=== PATIENT | male | born 1975 | race Caucasian/White ===

== ENCOUNTER 2024-05-12 22:29 | Outpatient (REF) | payer BC, SELFPAY ==
[2024-05-12 23:18] LABS: Albumin* 4.9 g/dL (3.3-5.0)
[2024-05-12 23:19] LABS: Chloride* 96 mmol/L (96-114); Potassium* 4.2 mmol/L (3.6-5.1); Sodium* 136 mmol/L (135-149)
[2024-05-12 23:21] LABS: Cholesterol* 278 mg/dL (90-199); Creatinine* 0.7 mg/dL (0.5-1.5); Estimated Glomerular Filt Rate 114 ml/min
[2024-05-12 23:22] LABS: Alanine Aminotransferase* 221 U/L (4-50); Alkaline Phosphatase* 88 U/L (40-150); Anion Gap 9 mEq/L (7-15); Aspartate Amino Transferase* 192 U/L (12-35); Bilirubin Total* 1.4 mg/dL (0.1-1.5); Blood Urea Nitrogen* 7 mg/dL (5-24); Calcium* 10.3 mg/dL (8.4-10.6); Carbon Dioxide* 31 mmol/L (20-32); Glucose* 118 mg/dL (60-115); Total Protein* 7.9 g/dL (6.0-8.3); Triglycerides* 138 mg/dL (40-149)
[2024-05-12 23:24] LABS: Hemoglobin A1C* 4.9 % (0-5.6)
[2024-05-12 23:48] LABS: HDL Cholesterol* 133 mg/dL (>=40); LDL Cholesterol Calculated 117 mg/dL (<100)
== END 2024-05-12 22:30 | disposition home or self-care (01) ==
LOC: NPINS 22:29
PROVIDERS: Physician Assistant
DX: Z13.6 Encounter for screening for cardiovascular disorders (principal); Z13.228 Encounter for screening for other metabolic disorders; Z13.29 Encounter for screening for other suspected endocrine disorder
CPT/HCPCS: 80053; 80061; 83036; 84443